=== PATIENT | female | born 1995 | race Caucasian/White ===

== ENCOUNTER 2024-03-29 19:12 | Emergency (ER) | payer BC ==
[~2024-03-29] VITALS: Ht 172.7 cm; Wt 62.7 kg
[2024-03-29] MEDS ORDERED: KETOROLAC TROMETHAMINE 30 MG/ML VIAL IV ONE (19:30)
[2024-03-29] MEDS ORDERED: ondansetron HCL 4 MG/2 ML VIAL IV ONE (19:30)
[2024-03-29] MEDS ORDERED: SODIUM CHLORIDE 0.9% 1,000 ML IV PRN (19:30)
[2024-03-29 19:42] LABS: BASOPHILS 0.5 % (0-2); EOSINOPHILS 2.1 % (0-6); HEMATOCRIT 39.4 % (35.0-50.0); HEMOGLOBIN 13.6 g/dL (12.0-18.0); LYMPHOCYTES 37.9 % (24-44); MCH 29.5 (27-36); MCHC 34.5 g/dl (30-36); MCV 85.7 fl (81-99); MONOCYTES 11.8 % (0-12); NEUTROPHILS 47.7 % (39-80); PLATELET COUNT 322 K/uL (140-440); RDW 13.1 (10.5-15.0)
[2024-03-29 19:43] LABS: BILIRUBIN, URINE NEGATIVE (negative); BLOOD/HGB, URINE TRACE-I (Negative); KETONE, URINE NEGATIVE (Negative); LEUK ESTERASE, URINE NEGATIVE (negative); NITRITE, URINE NEGATIVE (negative); PH, URINE 5.5 (5-7)
[2024-03-29 19:50] LABS: BACTERIA, URINE RARE /hpf (negative); CASTS, URINE NONE SEEN \\lpf; CRYSTALS, URINE NONE SEEN (0-1+); EPITHELIAL CELLS, URINE SQUAMOUS 1+ /lpf (0-1+); RED BLOOD CELLS, URINE 0-1 /hpf (0-5)
[2024-03-29 19:51] LABS: COLLECTION TYPE, URINE CLEAN CATCH; REFLEX CULTURE, URINE No (No)
[2024-03-29 19:57] LABS: ALBUMIN 3.3 g/dL (3.4-5.0); ALBUMIN/GLOBULIN RATIO 0.8 (1.1-2.4); ANION GAP 12.6 (7-21); BILIRUBIN, TOTAL 0.2 ng/dL (0.2-1.0); BUN/CREATININE RATIO 4.81 (6.0-28.6); CALCIUM 8.8 mg/dL (8.5-10.1); CREATININE, SERUM 0.83 mg/dL (0.55-1.02); POTASSIUM 3.6 mmol/L (3.5-5.1); PROTEIN, TOTAL 7.4 g/dL (6.4-8.2)
[2024-03-29 21:14] VITALS: BP 106/63
[2024-03-29] MEDS ORDERED: ONDANSETRON 4 MG HOME.PACK SL ONE (21:15)
== END 2024-03-29 21:14 | disposition home or self-care (01) ==
LOC: ED 19:12
PROVIDERS: Emergency Medicine
DX: R10.31 Right lower quadrant pain (principal); Z88.2 Allergy status to sulfonamides
CPT/HCPCS: 36415; 76705; 80053; 81001; 83690; 84703; 85025; 96361; 96374; 96375; 99284-25; A9270; J1885; J2405; J7030

== ENCOUNTER 2024-07-31 08:35 | Emergency (ER) | payer OTHER, BC ==
[~2024-07-31] VITALS: Ht 172.7 cm; Wt 61.1 kg
[2024-07-31] MEDS ORDERED: ENSKYCE1 EACH PO (08:49)
[2024-07-31 09:42] VITALS: BP 120/87
== END 2024-07-31 09:43 | disposition home or self-care (01) ==
LOC: ED 08:35
DX: S59.902A Unspecified injury of left elbow, initial encounter (principal); S54.02XA Injury of ulnar nerve at forearm level, left arm, initial encounter; W23.0XXA Caught, crushed, jammed, or pinched between moving objects, initial encounter; Z88.2 Allergy status to sulfonamides; Z79.890 Hormone replacement therapy
CPT/HCPCS: 73080; 99283

== ENCOUNTER 2025-02-26 08:15 | Day surgery (SDC) | payer OTHER, BC ==
[~2025-02-26] VITALS: Ht 172.7 cm; Wt 61.8 kg
[~2025-02-26 08:15] MED LIST: CEFAZOLIN SODIUM 2 GM/20 ML SYR IV SCH; DEXAMETHASONE SOD PHOS 4 MG/ML VIAL ONE; DICLOFENAC SODI75 MG PO; ENSKYCE1 EACH PO; GABAPENTIN300 MG PO; IBLOOD GLUCOSE TEST STRIP 1 EA TEST VI PRN; LACTATED RINGER'S 1,000 ML IV SCH; LIDOCAINE HCL 1% 5 ML SDV INJ ONE; LIDOCAINE HCL 2% 5 ML SDV ONE; MIDAZOLAM HCL 2 MG/2 ML VIAL ONE; Ropivacaine HCl 0.5% 30 ML VIAL ONE; SODIUM CHLORIDE 0.9% 20 ML IV ONE; TRANEXAMIC ACID IN NACL,ISO-OS 1,000 MG/100 ML PIGGYBACK IV SCH; dexmedeTOMIDine HCl 200 MCG/2 ML VIAL ONE
[2025-02-26 08:43] VITALS: BP 1017/71
[2025-02-26 09:14] VITALS: BP 107/71
[2025-02-26] MEDS ORDERED: DEXAMETHASONE SOD PHOS 4 MG/ML VIAL ONE (10:01)
[2025-02-26] MEDS ORDERED: KETOROLAC TROMETHAMINE 30 MG/ML VIAL ONE (10:01)
[2025-02-26] MEDS ORDERED: LIDOCAINE HCL 2% 5 ML SDV ONE (10:01)
[2025-02-26] MEDS ORDERED: propofoL 200 MG/20 ML VIAL ONE (10:01)
[2025-02-26] MEDS ORDERED: ondansetron HCL 4 MG/2 ML VIAL ONE (10:01)
[2025-02-26] MEDS ORDERED: KETOROLAC TROMETHAMINE 15 MG/ML VIAL IV PRN (10:15)
[2025-02-26] MEDS ORDERED: HYDROCODONE/ACETA 7.5/325 TAB PO PRN (10:15)
[2025-02-26] MEDS ORDERED: IBLOOD GLUCOSE TEST STRIP 1 EA TEST VI PRN (11:15)
[2025-02-26] MEDS ORDERED: NALOXONE HCL 0.4 MG SYR IV PRN (11:15)
[2025-02-26] MEDS ORDERED: ondansetron HCL 4 MG/2 ML VIAL IV PRN (11:15)
[2025-02-26] MEDS ORDERED: fentaNYL citrate 50 MCG/ML SDV IV PRN (11:15)
[2025-02-26] MEDS ORDERED: HYDROCODON-ACE1 EA11 PO (11:44)
--- NOTE | 2025-02-26 12:06 | NUR ---
02/26/25 1206 Izabel Daly 1142-PT ARRIVES TO PACU VIA STRETCHER, RESTING SEMI FOWLERS, PT AWAKE BUT DROWSY, DENIES PAIN BUT C/O NAUSEA, VSS ON 6L VIA MASK. 1150-PT GIVEN IV NAUSEA MEDS PER ORDER. 1155-PT TITRATED TO RA, VS REMAIN STABLE. PT DENIES PAIN OR NAUSEA.
[2025-02-26 12:15] VITALS: BP 132/64
[2025-02-26 13:20] VITALS: BP 93/50
--- NOTE | 2025-02-26 13:20 | NUR ---
1215 PT BACK TO DS FROM PACU AWAKE AND ALERT DENIES PAIN AND NAUSEA. PT REPORTS NEEDING TO VOID, HELPED PT UP TO COMMOD AT BEDSIDE SHE WAS ABLE TO VOID 200ML OF CLEAR YELLOW URINE. PT HELPED BACK INTO BED. BLANKETS PLACED BACK ON PT CALL LIGHT WITHIN REACH. PT GIVEN CRACKERS AND WATER SHE TOLERATES WELL.
[2025-02-26 13:35] VITALS: BP 101/50
[2025-02-26] MEDS ORDERED: SEVOFLURANE 250 ML BTL INH ONE (13:54)
--- NOTE | 2025-02-26 14:07 | NUR ---
VISITED DURING SPIRITUAL CARE ROUNDS. PT SUPPORTED BY PARTNER IN ROOM. BOTH IN OVERALL GOOD SPIRITS. NO IMMEDIATE NEEDS. DOOR AND ARRIVAL ATTENDANT PROVIDED SUPPORTIVE PRESENCE, HOSPITALITY, PRAYER, FACILITATED INTERACTION WITH THERAPY ANIMAL. PT EXPRESSED GRATITUDE.
--- NOTE | 2025-02-26 14:18 | NUR ---
1335 PT AMBULATED TO THE BATHROOM WITHOUT ASSIST SHE WAS ABLE TO VOID. PT WALKED BACK TO HER ROOM. DISCHARGE INSTRUCTIONS GIVEN TO PT AND BOYFRIEND BOTH VOICED UNDERSTANDING. PT ASKED IF DR COULD CALL IN [email or web address] ODT, SHE GETS NAUSEOUS WITH PAIN MEDS. CALLED DR WITH PTS REQUEST. HE CALLED IN [email or web address] ODT 4MG TABS. PTS LEFT ARM IS STILL NUMB SHE REPORTS IT FEELS HOT. EXPLAINED TO PT THAT THE BLOCK DIANA DILATE BLOOD VESSELS AND MAKE EXTREMITY FEEL HOT AND SWOLLEN. PT DENIES PAIN AND NAUSEA.
[2025-02-26] MEDS ORDERED: DICLOFENAC SOD 75 MG TABEC PO SCH (21:00)
--- NOTE | 2025-02-28 16:31 | OR ---
[facility] [address] [place], [place] [address] Signed DATE OF OPERATION: 02/26/2025 SURGEON: Caitlin Patrick MD PREOPERATIVE DIAGNOSIS: Left ulnar neuritis. POSTOPERATIVE DIAGNOSIS: Left ulnar neuritis. PROCEDURE PERFORMED: Left ulnar nerve subcutaneous transposition. [employer]PER[employer]: Deepthi Starks PA-C. Deepthi was present and critical for all portions of procedure. ANESTHESIA: General. BLOOD LOSS: None. TOURNIQUET TIME: minutes. 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 She suffered a medial collateral ligament injury as well as subluxing ulnar nerve. This continued to sublux and actually worsened during her recovery from the ligament injury. She continued to have numbness and weakness in the ulnar nerve distribution. Risks and benefits of operative treatment discussed with her and she elected to proceed. DESCRIPTION OF PROCEDURE: Once consent was obtained she was taken to the operating room. After adequate anesthesia she was placed on the OR bed. The left arm was prepped and draped in a standard sterile fashion and a sterile tourniquet was applied. The arm was then exsanguinated using Esmarch bandage. Tourniquet inflated to 200 mmHg. The medial epicondyle was approached through a 2 inch incision centered over the epicondyle. The dissection was taken through skin and subcutaneous tissue and directly down the Electronically Signed By: CAITLIN PATRICK MD 02/28/25 1631 PATIENT NAME: DIEGO GARY OPERATIVE REPORT DATE OF : [birth year] REPORT #: [id number] PHYSICIAN: CAITLIN PATRICK MD PCP: NO PRIMARY CARE PHYSICIAN REPORT IS CONFIDENTIAL AND NOT TO BE RELEASED WITHOUT AUTHORIZATION [facility] [address], [place] [address] Signed epicondyle. Skin flaps were developed anteriorly and posteriorly. The ulnar nerve was identified in the cubital tunnel. ligament was pretty much gone. The nerve was then dissected free of surrounding soft tissue proximally and distally. The branches to the FCU were left in place. The nerve was noted to be a fairly small caliber and showed significant damage in the region of the epicondyle. The nerve was dissected from the muscle belly distally and mobilized until it was able to be mobilized anteriorly in a free manner with no significant tension or ridges. The intermuscular septum between the triceps and the biceps were also excised. She had no significant arcade. The subcutaneous fascial flap was then prepared anteriorly. This was then sewed over the top of the nerve, holding it in an anterior position. Care was taken to visualize the nerve during the entire suturing process. We were able to move the nerve back and forth inside the tunnel at the end of the procedure. The wound was copiously irrigated with normal saline. The posterior void was then closed using 2-0 Monocryl. Subcutaneous tissue with 2-0 Monocryl and the skin with 3-0 Stratafix. The wound was then sealed with LiquiBand and Steri-Strips and dressed with Allevyn. She was placed in a posterior splint with side pieces. She tolerated the procedure well. All sponge, needle, and instrument counts were correct. Caitlin Patrick MD BA/MODL /[id number] Copies: ~ Electronically Signed By: CAITLIN PATRICK MD 02/28/25 1631 PATIENT NAME: DIEGO GARY OPERATIVE REPORT DATE OF : [birth year] REPORT #: [id number] PHYSICIAN: CAITLIN PATRICK MD PCP: NO PRIMARY CARE PHYSICIAN REPORT IS CONFIDENTIAL AND NOT TO BE RELEASED WITHOUT AUTHORIZATION
== END 2025-02-26 13:50 | disposition home or self-care (01) ==
LOC: DS 08:15
PROVIDERS: ATTEND Specialist
PROC: 0RSP0ZZ Reposition Left Wrist Joint, Open Approach (ICD-10-PCS; principal; 2025-02-26 10:40)
DX: G56.22 Lesion of ulnar nerve, left upper limb (principal); Z88.2 Allergy status to sulfonamides
CPT/HCPCS: 01810; 64415; 84703; J0690; J1100; J1885; J2003; J2250; J2405; J2704; J2795; J7121